=== PATIENT | male | born 1970 | race Caucasian/White ===

== ENCOUNTER → 2018-04-09 08:04 | Day surgery (SDC) | payer BC ==
[~2018-04-09 08:04] MED LIST: Clindamycin 600 MG IVPREMIX(* 600 MG/50 ML SDV IV ONE; Diazepam TAB(*) 5 MG ONE; Flumazenil* 0.1 MG/ML 5 ML MDV ONE; Lidocaine 1% INJ* 10 MG/ML 30 ML SDV ONE; Midazolam* 1 MG/ML 5 ML VIAL (5 MG) ONE; Naloxone* 0.4 MG/ML 1 ML VIAL ONE; fentaNYL* 50 MCG/ML 2 ML VIAL (100 MCG VIAL) ONE
--- NOTE | 2018-04-11 01:20 | OP ---
CC: Dr. Doyle * DATE OF OPERATION: 04/09/18 - [facility] CATH DATE OF : 70 SURGEON: Nitin Carpio MD ANESTHESIA: Local anesthesia with conscious sedation. PRE-OP DIAGNOSES: 1. Ventricular tachycardia. 2. ICD at elective replacement indicator. POST-OP DIAGNOSES: 1. Ventricular tachycardia. 2. ICD at elective replacement indicator. OPERATIVE PROCEDURE: ICD generator change. ESTIMATED BLOOD LOSS: None. COMPLICATIONS: None. INDICATIONS: The patient is a 48-year-old gentleman with a history of ventricular tachycardia, history of pacemaker implantation in 2007. The patient has been followed by Dr. Doyle. The patient reached the elective replacement indicator on his ICD and generator change was recommended. DESCRIPTION OF PROCEDURE: The patient was brought to the procedure room in a fasting state. Informed consent had been obtained prior to the procedure. All labs were reviewed. The patient was placed supine on the procedure table. His left deltopectoral area was cleaned and draped in the usual fashion. 1% lidocaine was used for local anesthesia. A 4 cm incision was made at the superior aspect of the ICD. Blunt dissection was carried onto the fibrous sheath. The fibrous sheath was opened and the ICD was removed from the pocket. The ICD was detached from the ventricular lead. The ventricular lead was tested and had a R wave sensitivity of 6, impedance 440 ohms, threshold 1 volt at 0.5 milliseconds. The explanted device is a [employer] model T177 serial #[id number]. The pocket was flushed with antibiotic infused normal saline. A new generator was attached appropriately to the ventricular lead. The new generator is a [employer] model [id number] serial #[id number]. The device was placed in the pocket. The surgical incision was closed in 3 layers. Patient was returned to the holding area in stable condition. [id number]/[facility] #: [id number] [facility]ENTER[facility]
== END | disposition home or self-care (01) ==
LOC: CHICATH 08:04
PROVIDERS: ATTEND Specialist
DX: Z45.02 Encounter for adjustment and management of automatic implantable cardiac defibrillator (principal); I47.2 Ventricular tachycardia; R01.1 Cardiac murmur, unspecified; R06.00 Dyspnea, unspecified; I42.8 Other cardiomyopathies; I34.8 Other nonrheumatic mitral valve disorders
CPT/HCPCS: 33249; 88300; 93641; 99156; 99157; A9270-GY; C1722; J2250; J2310; J3010

== ENCOUNTER 2019-09-09 19:42 | Inpatient (IN) | payer BC ==
--- OUTSIDE RECORDS SUMMARY | 2019-09-09 20:18 | XMS REPORT | Continuity of Care Document ---
:1970 External Reference #:[id number] Author Name Julio Doyle M.D. (transmitted by agent of provider Deja Banda) Address [address] [facility] [address] [place] [address] Care Team Providers Name Role Phone Louie Maldonado MD - Family Medicine Care Team Information Resident Engineer [phone] Julio Doyle MD [facility] - Care Team Information Resident Engineer Cardiovascular Disease Problems Active Problems Provider Date Hypertrophic Obstructive Cardiomyopathy Julio Doyle M.D. Onset: Automatic implantable cardiac Julio Doyle M.D. Onset: 09/30/2011 defibrillator in situ Mitral valve disorder Julio Doyle M.D. Onset: 09/30/2011 Paroxysmal ventricular tachycardia Julio Doyle M.D. Onset: 2011 Dyspnea Julio Doyle M.D. Onset: 09/30/2011 Heart murmur Julio Doyle M.D. Onset: 09/30/2011 Electrocardiogram abnormal Julio Doyle M.D. Onset: 05/08/2012 Preoperative cardiovascular examination Julio Doyle M.D. Onset: Paroxysmal supraventricular tachycardia SALINAS Herring Onset: 10/30/2013 Atrial fibrillation SALINAS Herring Onset: 10/30/2013 Palpitations Julio Doyle M.D. Onset: 12/13/2013 Social History Type Date Description Comments Sex Unknown Tobacco Use Start: Unknown Never Smoked Cigarettes Smoking Status Reviewed: 08/20/19 Never Smoked Cigarettes ETOH Use Drinks Alcoholic Beverages Occasionally ETOH Use Drinks 2 Alcoholic Beverages Per Week Tobacco Use Start: Unknown Patient has never smoked Recreational Drug Use Denies Drug Use Exercise Type/Frequency Exercises regularly Hikes Allergies, Adverse Reactions, Alerts Active Allergies Reaction Severity Comments Date Amoxicillin rash 12/09/2009 Bactrim hives 06/12/2013 Inactive Allergies NKDA 10/23/2007 Medications Active Medications SIG Qnty Indications Ordering Provider Date Toprol XL 1 by mouth every Unknown 08/19/2019 25mg Tablets day ER 24HR Clindamycin HCL one po x1 one 1caps Qutaybeh S. 09/23/2016 300mg hour before Ham Doyle Capsules dental procedure. Multi Complete daily Other Ordering 06/22/2014 Provider Capsules Aspir-81 1 by mouth every 427.31 Qutaybeh S. 10/30/2013 81mg Tablets day Ham Doyle DR Slow-Mag 2 tabs by mouth 120tabs Qutaybeh S. 71.5-119mg once daily Ham Doyle Tablets Immunizations Description No Information Available Vital Signs Date Vital Result Comment 08/20/2019 9:44am Height 70 inches 5'10" Weight 179.00 lb with boots Heart Rate 62 /min left radial BP Systolic Sitting 110 mmHg ule reg cuff BP Diastolic Sitting 76 mmHg ule reg cuff BMI (Body Mass Index) 25.7 kg/m2 Ejection Fraction 55-60% 07/24/19 Echo 04/11/2019 8:19am Height 70 inches 5'10" Weight 183.50 lb with boots/clothes Heart Rate 64 /min radial, regular BP Systolic Sitting 112 mmHg LA, reg cuff BP Diastolic Sitting 76 mmHg LA, reg cuff BP Systolic Standing 112 mmHg LA, reg cuff BP Diastolic Standing 76 mmHg LA, reg cuff BMI (Body Mass Index) 26.3 kg/m2 Ejection Fraction 60%-65% echo 06/22/18 Results Test Acquired Date Facility Test Result H/L Range Note Laboratory test 08/15/2019 [facility] Alt (SGPT) 14 U/L Normal 7-[address] [place] [address] [phone] Ast (Sgot) 17 U/L Normal 13-39 TSH (Thyroid Stim Horm) 1.43 mcIU/mL Normal 0.34-5.60 Basic Metabolic 08/15/2019 [facility] Sodium 140 mmol/L Normal 135-145 Panel [address] [place] [address] [phone] Potassium 4.4 mmol/L Normal 3.5-5.0 Chloride 104 mmol/L Normal 101-111 Co2 Carbon Dioxide 31 mmol/L Normal 22-32 Anion Gap 5 mmol/L Normal 2-11 Glucose 91 mg/dL Normal 70-100 Blood Urea Nitrogen 14 mg/dL Normal 6-24 Creatinine 0.84 mg/dL Normal 0.67-1.17 BUN/Creatinine Ratio 16.7 Normal 8-20 Calcium 9.2 mg/dL Normal 8.6-10.3 Egfr Non- 97.1 >60 Egfr 117.5 >60 1 Laboratory test 08/15/2019 [facility] Magnesium 1.9 mg/dL Normal 1.9-2.7 finding [address] [place] [address] [phone] 1 Because ethnic data is not always readily available, this report includes an eGFR for both -Americans and non- Americans. The National Kidney Disease Education Program (NKDEP) does not endorse the use of the MDRD equation for patients that are not between the ages of 18 and 70, are , have extremes of body size, muscle mass, or nutritional status, or are non- or non-. According to the National Kidney Foundation, irrespective of diagnosis, the stage of the disease is based on the level of kidney function: Stage Description GFR(mL/min/1.73 m(2)) 1 Kidney damage with normal or decreased GFR 90 2 Kidney damage with mild decrease in GFR 60-89 3 Moderate decrease in GFR 30-59 4 Severe decrease in GFR 15-29 5 Kidney failure <15 (or dialysis) Procedures Date Code Description Status 08/20/2019 21988 EKG Tracing & Interpretation Completed 07/26/2019 27744 Interrogation Device Eval Remote Up To 30 Days Completed Analysis,Rev,RP 07/26/2019 30232 Interrogation Device Eval Remote Up To 30 Days Completed Analysis,Rev,RP 07/26/2019 84638 Icd Eval Sing,Dual,Multi Lead Remote Recpt Transm Tech Rev Completed Tech S 07/26/2019 57784 Icd Eval Sing,Dual,Multi Lead Remote Recpt Transm Tech Rev Completed Tech S 07/26/2019 01742 Icd Check Remote Up To 90 Days Single,Dual,Multiple Lead Completed 07/26/2019 95958 Icd Check Remote Up To 90 Days Single,Dual,Multiple Lead Completed 07/24/2019 28580 ECHO Transthoracic, Real-Time 2D With Doppler And Color Completed Flow 07/24/2019 49161 ECHO Transthoracic, Real-Time 2D With Doppler And Color Completed Flow 06/25/2019 72900 Icd eval w/iterative adjment single lead Icd Completed 06/25/2019 59708 Icd eval w/iterative adjment single lead Icd Completed 06/25/2019 48026 Interrogation Implant Cardiovasc Monitor System Incl Completed Analysis Int 06/25/2019 67643 Interrogation Implant Cardiovasc Monitor System Incl Completed Analysis Int 03/29/2019 44179 Interrogation Device Eval Remote Up To 30 Days Completed Analysis,Rev,RP 03/29/2019 95496 Interrogation Device Eval Remote Up To [address] Completed Analysis,Rev,RP 03/29/2019 90101 Icd Eval Sing,Dual,Multi Lead Remote Recpt Transm Tech Rev Completed Tech S 03/29/2019 56347 Icd Eval Sing,Dual,Multi Lead Remote Recpt Transm Tech Rev Completed Tech S 03/29/2019 95554 Icd Check Remote Up To 90 Days Single,Dual,Multiple Lead Completed 03/29/2019 17093 Icd Check Remote Up To 90 Days Single,Dual,Multiple Lead Completed Medical Devices Description No Information Available Encounters Type Date Location Provider Dx Diagnosis Office Visit 04/11/2019 [facility] Apryl Bueno, I47.2 Ventricular 8:30a N.P. tachycardia Z95.810 Presence of automatic (implantable) cardiac defibrillator I42.1 Obstructive hypertrophic cardiomyopathy I71.9 Aortic aneurysm of unspecified site, without rupture Assessments Date Code Description Provider 08/20/2019 I47.2 Ventricular tachycardia Julio Doyle M.D. 08/20/2019 Z95.810 Presence of automatic (implantable) Julio Doyle M.D. cardiac defibrillator 08/20/2019 I42.2 Other hypertrophic cardiomyopathy Lui Leong.D. 08/20/2019 I77.819 Aortic ectasia, unspecified site Julio Doyle M.D. 07/26/2019 I47.2 Ventricular tachycardia Julio Doyle M.D. 07/26/2019 I47.2 Ventricular tachycardia Remote Device Checks 07/26/2019 Z95.810 Presence of automatic (implantable) Julio Doyle M.D. cardiac defibrillator 07/26/2019 Z95.810 Presence of automatic (implantable) Remote Device Checks cardiac defibrillator 07/26/2019 I42.1 Obstructive hypertrophic Julio Doyle M.D. cardiomyopathy 07/26/2019 I42.1 Obstructive hypertrophic Remote Device Checks cardiomyopathy 07/24/2019 I71.9 Aortic aneurysm of unspecified site, Julio Doyle M.D. without rupture 07/24/2019 I71.9 Aortic aneurysm of unspecified site, [facility] without rupture 07/24/2019 I47.2 Ventricular tachycardia [facility] 07/24/2019 Z95.810 Presence of automatic (implantable) [facility] cardiac defibrillator 07/24/2019 I42.1 Obstructive hypertrophic [facility] cardiomyopathy 07/24/2019 I42.2 Other hypertrophic cardiomyopathy [facility] 06/25/2019 I47.2 Ventricular tachycardia Ica Pacer Schedule 06/25/2019 Z95.810 Presence of automatic (implantable) Julio Doyle M.D. cardiac defibrillator 06/25/2019 Z95.810 Presence of automatic (implantable) Ica Pacer Schedule cardiac defibrillator 06/25/2019 I42.1 Obstructive hypertrophic Julio Doyle M.D. cardiomyopathy 06/25/2019 I42.1 Obstructive hypertrophic Ica Pacer Schedule cardiomyopathy 04/11/2019 I47.2 Ventricular tachycardia Apryl Bueno, N.P. 04/11/2019 Z95.810 Presence of automatic (implantable) Apryl Bueno, N.P. cardiac defibrillator 04/11/2019 I42.1 Obstructive hypertrophic Apryl Bueno, N.P. cardiomyopathy 04/11/2019 I71.9 Aortic aneurysm of unspecified site, Wesley Joyce.Eduardo. without rupture 03/29/2019 I47.2 Ventricular tachycardia Julio Doyle M.D. 03/29/2019 I47.2 Ventricular tachycardia Remote Device Checks 03/29/2019 Z95.810 Presence of automatic (implantable) Julio Dolye M.D. cardiac defibrillator 03/29/2019 Z95.810 Presence of automatic (implantable) Remote Device Checks cardiac defibrillator 03/29/2019 I42.1 Obstructive hypertrophic Julio Doyle M.D. cardiomyopathy 03/29/2019 I42.1 Obstructive hypertrophic Remote Device Checks cardiomyopathy Plan of Treatment 08/20/2019 - Julio Doyle M.D.I47.2 Ventricular puwjmplygwsN74.810 Presence of automatic (implantable) cardiac pbhqfgcdzqwnxS41.2 Other hypertrophic cardiomyopathyFollow up:8 months ovI77.819 Aortic ectasia, unspecified siteNew Orders:Echocardiogram, Ordered: 08/20/19 Functional Status Description No Information Available Mental Status Description No Information Available Referrals Refer to Reason for Referral Status Appt Date Cullen Munoz MD [place] alternative antiarrhythmic to amiodarone Sent [address] [facility] [address] [place] [address] [phone]
--- OUTSIDE RECORDS SUMMARY | 2019-09-09 20:18 | XMS REPORT | Continuity of Care Document ---
:1970 External Reference #:[id number] Author Name Louie Maldonado MD Address [address] [place] [id number] Problems Active Problems Provider Date Adult health examination Onset: 10/04/2018 Hypertrophic cardiomyopathy Louie Maldonado MD Onset: 08/16/2019 Note: ICD in place Paroxysmal atrial fibrillation Louie Maldonado MD Onset: 08/16/2019 Social History Type Date Description Comments Sex Unknown Tobacco Use Start: Unknown Patient has never smoked Smoking Status Reviewed: 08/16/19 Patient has never smoked Allergies, Adverse Reactions, Alerts Active Allergies Reaction Severity Comments Date Amoxicillin Anhydrous rash Severe 03/22/2019 Bactrim Rash May 2013 Severe 03/22/2019 Inactive Allergies Cardiomyopathy Meds restricted Severe 03/22/2019 Medications Active Medications SIG Qnty Indications Ordering Provider Date Slow-Mag Take 2 Tablets 120tabs Louie Maldonado MD 10/04/2018 71.5-119mg By Mouth Two Tablets DR Times Daily Metoprolol Succinate Unknown ER 25mg Tablets ER 24HR Aspir-Low 1 by mouth every Unknown 81mg Tablets day DR Multi Complete every day Unknown Capsules Immunizations CPT Code Status Date Vaccine Lot # [id number] Given 07/24/2019 Flu < 65 years 86547 Given 05/29/2018 Flu < 65 years 37831 Given 08/24/2017 Flu < 65 years 51517 Given 01/22/2016 Tdap - Boostrix/Adacel 65622 Given 07/30/2009 Pneumovax - for >=2years - PPSV23 Vital Signs Date Vital Result Comment 08/16/2019 11:46am BP Systolic 112 mmHg BP Diastolic 62 mmHg Height 69.5 inches 5'9.50" Weight 178.00 lb Heart Rate 62 /min Body Temperature 97.6 F O2 % BldC Oximetry 98 % BMI (Body Mass Index) 25.9 kg/m2 10/04/2018 9:56am BP Systolic 110 mmHg Height 70.00 inches 5'10.00" Weight 180.00 lb Heart Rate 80 /min Body Temperature 97.2 F O2 % BldC Oximetry 97 % BMI (Body Mass Index) 25.83 kg/m2 Results Test Acquired Date Facility Test Result H/L Range Note Basic Metabolic 08/15/2019 [facility] Sodium 140 mmol/L Normal 135-145 Panel [address] [place] [address] [phone] Potassium 4.4 mmol/L Normal 3.5-5.0 Chloride 104 mmol/L Normal 101-111 Co2 Carbon Dioxide 31 mmol/L Normal 22-32 Anion Gap 5 mmol/L Normal 2-11 Glucose 91 mg/dL Normal 70-100 Blood Urea Nitrogen 14 mg/dL Normal 6-24 Creatinine 0.84 mg/dL Normal 0.67-1.17 BUN/Creatinine Ratio 16.7 Normal 8-20 Calcium 9.2 mg/dL Normal 8.6-10.3 Egfr Non- 97.1 >60 Egfr 117.5 >60 1 Laboratory test 08/15/2019 [facility] Magnesium 1.9 mg/dL Normal 1.9-2.7 finding [address] [place] [address] [phone] Alt (SGPT) 14 U/L Normal 7-52 Ast (Sgot) 17 U/L Normal 13-39 TSH (Thyroid Stim Horm) 1.43 mcIU/mL Normal 0.34-5.60 1 Because ethnic data is not always [...] 5 Kidney failure <15 (or dialysis) Procedures Description No Information Available Medical Devices Description No Information Available Encounters Type Date Location Provider Dx Diagnosis Office Visit 08/16/2019 11:45a [facility] Louie Maldonado MD R06.83 Snoring J30.2 Other seasonal allergic rhinitis Assessments Date Code Description Provider 08/16/2019 R06.83 Snoring Louie Maldonado MD 08/16/2019 J30.2 Other seasonal allergic rhinitis Louie Maldonado MD Plan of Treatment No Information Available Functional Status Description No Information Available Mental Status Description No Information Available Referrals Description No Information Available
[2019-09-09 21:20] LABS: ABS Eosinophils 0.2 10^3/ul (0-0.6); ABS Lymphocytes 2.2 10^3/ul (1.0-4.8); ABS Monocytes 0.6 10^3/ul (0-0.8); ABS Neutrophils 4.8 10^3/ul (1.5-7.7); Eosinophil % 2.8 %; Hematocrit 40 % (42-52); Hemoglobin 13.6 g/dL (14.0-18.0); Lymphocyte % 28.3 %; Mean Corpuscular HGB Conc 34 g/dL (31-36); Mean Corpuscular Hemoglobin 33 pg (27-31); Mean Corpuscular Volume 96 fL (80-94); Mean Platelet Volume 7.2 fL (7.4-10.4); Platelet Count 229 10^3/uL (150-450); Red Blood Count 4.16 10^6 /uL (4.18-5.48); Red Cell Distribution Width 13 % (10-15); White Blood Count 7.9 10^3/uL (3.5-10.8)
--- NOTE | 2019-09-09 21:24 | ED ---
Shortness of Breath - HPI Summary HPI Summary: Patient with history of cardiomyopathy and episodes of V. tach with implanted defibrillator followed by [facility] cardiology complains of sudden onset shortness of breath and rapid heart rate at 7 PM today while lifting a chair. Denies any other symptoms, pain or injury. Multivitamin [Multivitamins] 1 cap PO QAM 09/20/13 [History Confirmed 09/09/19] Aspirin EC TAB* [Ecotrin EC Low Dose 81 MG*] 81 mg PO DAILY 01/13/14 [History Confirmed 09/09/19] Amiodarone HCl [Amiodarone HCl-] 100 mg PO DAILY 04/06/18 [History Confirmed ] Magnesium Oxide [Magnesium] 400 mg PO BID 04/06/18 [History Confirmed 09/09/19] - History of Current Complaint Chief Complaint: EDChestPainROMI Time Seen by Provider: 09/09/19 21:17 Hx Obtained From: Patient Onset/Duration: Sudden Onset, Lasting Hours Timing: Constant Current Severity: Moderate Dyspnea At: Exertion Alleviating Factors: Nothing Associated Signs & Symptoms: Negative - Allergy/Home Medications Allergies/Adverse Reactions: Allergies Allergy/AdvReac Type Severity Reaction Status Date / Time amoxicillin Allergy Severe Rash And Verified 09/10/19 00:01 Itching sulfamethoxazole Allergy Severe Rash And Verified 09/10/19 00:01 [From Bactrim] Itching trimethoprim [From Bactrim] Allergy Severe Rash And Verified 09/10/19 00:01 Itching BLACK PEPPER Allergy PER Uncoded 09/09/19 20:08 ALLERGY TESTING COCONUT Allergy PER Uncoded 09/09/19 20:08 ALLERGY TESTING CORN/SOY Allergy PER Uncoded 09/09/19 20:08 ALLERGY TESTING ENVIRONMENTAL Allergy PER Uncoded 09/09/19 20:08 ALLERGY TESTING Home Medications: Home Medications Multivitamin [Multivitamins] 1 cap PO QAM 09/20/13 [History Confirmed 09/09/19] Aspirin EC TAB* [Ecotrin EC Low Dose 81 MG*] 81 mg PO DAILY 01/13/14 [History Confirmed 09/09/19] Amiodarone HCl [Amiodarone HCl-] 100 mg PO DAILY 04/06/18 [History Confirmed ] Magnesium Oxide [Magnesium] 400 mg PO BID 04/06/18 [History Confirmed 09/09/19] PMH/Surg Hx/FS Hx/Imm Hx Endocrine/Hematology History: Denies: Hx Diabetes Cardiovascular History: Reports: Hx Coronary Artery Disease - CARDIAC CATH 2007 , Hx Pacemaker/ICD - ICD only , vtach, Other Cardiovascular Problems/ Disorders - OBSTRUCTIVE HYPERTROPHIC CARDIOMYOPATHY Denies: Hx Cardiomegaly, Hx Congestive Heart Failure, Hx Hypertension History: Denies: Hx Dialysis, Hx Renal Disease Sensory History: Reports: Hx Contacts or Glasses - GLASSES Denies: Hx Hearing Aid Opthamlomology History: Reports: Hx Contacts or Glasses - GLASSES EENT History: Denies: Hx Deafness Neurological History: Denies: Hx Dementia - Surgical History Surgery Procedure, Year, and Place: 2007 CARDIAC [place] [facility] [place] PACEMAKER DEFIBRILLATOR INSERTED, [facility]. 2013 SEPTOPLASTY AND [place]AL POL[place] [facility] [place] Anesthesia Reactions: No Infectious Disease History: No Infectious Disease History: Denies: Traveled Outside the [place] in Last 30 Days - Family History Known Family History: Positive: Non-Contributory - Social History Alcohol Use: Occasionally Substance Use Type: Reports: None Review of Systems Constitutional: Negative Eyes: Negative ENT: Negative Positive: Shortness Of Breath Gastrointestinal: Negative Genitourinary: Negative Musculoskeletal: Negative Skin: Negative Neurological/Mental Status: Negative Psychological: Normal All Other Systems Reviewed And Are Negative: Yes Physical Exam Triage Information Reviewed: Yes Vital Signs On Initial Exam: Initial Vitals Temp Pulse Resp BP Pulse Ox 98.4 F 104 16 130/82 98 09/09/19 20:06 09/09/19 20:06 09/09/19 20:06 09/09/19 20:06 09/09/19 20:06 Vital Signs Reviewed: Yes Appearance: Positive: Well-Appearing Skin: Positive: Warm Head/Face: Positive: Normal Head/Face Inspection Eyes: Positive: Normal Neck: Positive: Supple Respiratory/Lung Sounds: Positive: Clear to Auscultation Cardiovascular: Positive: Normal Abdomen Description: Positive: Nontender Musculoskeletal: Positive: Normal Neurological: Positive: Normal Psychiatric: Positive: Normal AVPU Assessment: Alert - [place] Coma Scale Best Eye Response: 4 - Spontaneous Best Motor Response: 6 - Obeys Commands Best Verbal Response: 5 - Oriented Coma Scale Total: 15 Procedures - Sedation Patient Received Moderate/Deep Sedation with Procedure: No Diagnostics - Vital Signs Vital Signs Temp Pulse Resp BP Pulse Ox 09/09/19 20:06 98.4 F 104 16 130/82 98 - Laboratory Lab Results: Lab Results 09/09/19 Range/Units 21:10 WBC 7.9 (3.5-10.8) 10^3/uL RBC 4.16 L (4.18-5.48) 10^6 /uL Hgb 13.6 L (14.0-18.0) g/dL Hct 40 L (42-52) % MCV 96 H (80-94) fL MCH 33 H (27-31) pg MCHC 34 (31-36) g/dL RDW 13 (10-15) % Plt Count 229 (150-450) 10^3/uL MPV 7.2 L (7.4-10.4) fL Neut % (Auto) 61.2 % Lymph % (Auto) 28.3 % [place] % (Auto) 7.4 % Eos % (Auto) 2.8 % Baso % (Auto) 0.3 % Absolute Neuts (auto) 4.8 (1.5-7.7) 10^3/ul Absolute Lymphs (auto) 2.2 (1.0-4.8) 10^3/ul Absolute Monos (auto) 0.6 (0-0.8) 10^3/ul Absolute Eos (auto) 0.2 (0-0.6) 10^3/ul Absolute Basos (auto) 0.0 (0-0.2) 10^3/ul Absolute Nucleated RBC 0.0 10^3/ul Nucleated RBC % 0.0 Result Diagrams: 09/09/19 21:10 09/09/19 21:10 Lab Statement: Any lab studies that have been ordered have been reviewed, and results considered in the medical decision making process. Course/Dx - Course Course Of Treatment: Patient with history of cardiomyopathy and episodes of V. tach with implanted defibrillator followed by [facility] cardiology complains of sudden onset shortness of breath and rapid heart rate at 7 PM today while lifting a chair. Denies any other symptoms, pain or injury. Heart rate 123. Vital signs otherwise within normal limits. Labs within normal limits. EKG A. fib, rate of 122. No prior history of A. fib. Rate controlled after 10 mg IV diltiazem, but rhythm still irregular. Admitted to hospitalist. - Diagnoses Provider Diagnoses: New onset atrial fibrillation, Chest pain, SOB (shortness of breath) on exertion Discharge ED - Sign-Out/Discharge Documenting (check all that apply): Patient Departure - Discharge Plan Condition: Stable Disposition: ADMITTED TO [facility] - Billing Disposition and Condition Condition: STABLE Disposition: Admitted to [facility] - Attestation Statements Provider Attestation: the patient was seen by the midlevel provider, it was determined by them that it was not necessary for me to see the patient, I was available for consult during the patient's visit in the ED. I did not establish and patient-physician relationship. The chart however has been reviewed and I am signing in an administrative capacity.
[2019-09-09] MEDS ORDERED: Diltiazem IV push/loading dose 5 MG/ML 5 ML vial (25 mg) IV SLOW PU ONE (21:38)
[2019-09-09 21:39] LABS: Albumin 4.3 g/dL (3.2-5.2); Albumin/Globulin Ratio 1.8 (1-3); Calcium 9.2 mg/dL (8.6-10.3); EGFR African American 117.5 (>60); EGFR Non-African American 97.1 (>60); Globulin 2.4 g/dL (2-4); Potassium 4.3 mmol/L (3.5-5.0); Total Bilirubin 0.3 mg/dL (0.2-1.0); Total Protein 6.7 g/dL (6.4-8.9)
[2019-09-09] MEDS ORDERED: Ondansetron INJ* 2 MG/ML VIAL IV PRN (23:37)
[2019-09-09] MEDS ORDERED: Acetaminophen TAB* 325 MG PO PRN (23:37)
[2019-09-10] MEDS: Apixaban* 5 MG TAB PO SCH ×3 (00:56→21:35)
--- NOTE | 2019-09-10 04:44 | HP ---
History of Present Illness - History of Present Illness Reason for Visit: Palpitations, Chest pressure, SOB on exertion History of Present Illness: This is a 49 yo with history of Hypertrophic cardiomyopathy, HTN, remote V-tach, CAD with cardiac cath, implanted defibrillator/pacer and family history consistent with hypertrophic cardiomyopathy presented with SOB on exertion and rapid heart rate this evening at around 7 pm while working at home. Said he was lifting a chair when it happened. Denied F/N/headache. Positive chest pressure/tightness and palpitations. The chest pressure did not radiate. - Past Medical History Cardiac: HTN, Other - Hypertrophic cardiomyopathy - Past Surgical History Past Surgical History: Hernia Repair, Other - Defibrillator/pacer placement - Past Social History Smoke: No Alcohol: Occasional Drugs: None Lives: With Family Domestic Violence: Negative Review of Systems - Measurements Intake and Output: Intake and Output Last 24 Hours 09/07/19 09/08/19 09/09/19 09/10/19 06:59 06:59 06:59 06:59 Weight 79.832 kg - Review of Systems Constitutional Symptoms: Negative: Weight Gain, Weight Loss, Fatigue Dermatology: Positive: Normal HEENT: Positive: Normal Eyes: Positive: Normal Thyroid: Positive: Palpitations Negative: Cold Intolerance, Heat Intolerance, Sweatiness, Tremor, Weight Loss , Weight Gain Pulmonary: Positive: Shortness of Breath Negative: Asthma, Exercise Intolerance, Home Oxygen Cardiology: Positive: Shortness of Breath, Palpitations Negative: Edema, Syncope Gastroenterology: Positive: Normal Genital - Urinary: Negative: Dysuria, Hematuria, Polyuria, Nocturia Genitourinary - Male: Negative: Prostatism Musculoskeletal: Negative: Osteoporosis, Sciatica Endocrinology: Positive: Normal Hematologic/Lymphatic: Negative: Anemia, Hx Leukemia, Hx Lymphoma Neurology: Negative: Headache, Migraines, Dizziness, Change in Balancing, Change in Coordination, Change in Memory Psychiatry: Negative: Depressed Mood, Suicidal Ideation, Hypomania, Eating Disorders Allergic/Immunologic: Negative: Hx Anaphylaxis, Asthma, Hx HIV Objective Active Medications: Acetaminophen (Tylenol Tab*) 650 mg PO Q4H PRN PRN Reason: PAIN - MILD Apixaban (Eliquis*) 5 mg PO BID [facility] Last Admin: 09/10/19 00:56 Dose: 5 mg Aspirin (Aspirin Ec Tab*) 81 mg PO DAILY [facility] Docusate Sodium (Colace Cap*) 100 mg PO BID LOU Magnesium Oxide (Magox 400 Tab*) 400 mg PO BID LOU Multivitamins/Minerals (Theragran/Minerals Tab*) 1 tab PO QAM [facility]OU Ondansetron HCl (Zofran Inj*) 4 mg IV Q4H PRN PRN Reason: NAUSEA/VOMITING Vital Signs - 8 hr 09/09/19 09/09/19 09/09/19 21:21 21:23 21:52 Temperature Pulse Rate 96 96 Respiratory 17 15 16 Rate Blood Pressure 117/85 106/80 (mmHg) O2 Sat by Pulse 98 97 Oximetry 09/09/19 09/09/19 09/09/19 22:00 22:02 22:22 Temperature Pulse Rate 85 79 Respiratory 6 18 Rate Blood Pressure 106/80 109/87 (mmHg) O2 Sat by Pulse 96 98 Oximetry 09/09/19 09/09/19 09/09/19 22:52 23:00 23:22 Temperature Pulse Rate 75 80 83 Respiratory 15 16 13 Rate Blood Pressure 99/83 119/78 (mmHg) O2 Sat by Pulse 98 97 99 Oximetry 09/09/19 09/10/19 09/10/19 23:52 00:00 00:22 Temperature Pulse Rate 88 82 84 Respiratory 16 14 15 Rate Blood Pressure 116/81 119/90 (mmHg) O2 Sat by Pulse 98 96 97 Oximetry 09/10/19 09/10/19 09/10/19 00:36 00:49 00:52 Temperature Pulse Rate 80 85 Respiratory 15 11 Rate Blood Pressure 119/90 106/85 (mmHg) O2 Sat by Pulse 98 98 Oximetry 09/10/19 09/10/19 09/10/19 01:01 01:22 01:52 Temperature Pulse Rate 93 81 88 Respiratory 21 14 14 Rate Blood Pressure 107/80 113/72 (mmHg) O2 Sat by Pulse 97 98 98 Oximetry 09/10/19 09/10/19 09/10/19 02:01 02:22 02:52 Temperature Pulse Rate 84 71 71 Respiratory 1 7 1 Rate Blood Pressure 102/75 109/72 (mmHg) O2 Sat by Pulse 96 98 97 Oximetry 09/10/19 09/10/19 09/10/19 03:01 03:02 03:26 Temperature 97.5 F 97.8 F Pulse Rate 83 76 Respiratory 5 18 Rate Blood Pressure 117/91 (mmHg) O2 Sat by Pulse 96 98 Oximetry 09/10/19 03:47 Temperature 97.7 F Pulse Rate 79 Respiratory 16 Rate Blood Pressure 114/90 (mmHg) O2 Sat by Pulse 100 Oximetry Oxygen Devices in Use Now: None Eyes: No Scleral Icterus, PERRLA Ears/Nose/Mouth/Throat: NL Teeth, Lips, Gums, Mucous Membranes Moist Neck: NL Appearance and Movements; NL JVP, No Thyroid Enlargement, Masses Respiratory: Symmetrical Chest Expansion and Respiratory Effort, Clear to Auscultation Cardiovascular: NL Sounds; No Murmurs; No JVD, No Edema, - - irregularly irregular Abdominal: NL Sounds; No Tenderness; No Distention, No Hepatosplenomegaly Lymphatic: No Cervical Adenopathy Extremities: No Edema, No Clubbing, Cyanosis Skin: No Rash or Ulcers Neurological: Alert and Oriented x 3, NL Muscle Strength and Tone Result Diagrams: 09/10/19 06:21 09/09/19 21:10 Additional Lab and Data: Lab Results 09/09/19 Range/Units 21:10 WBC 7.9 (3.5-10.8) 10^3/uL RBC 4.16 L (4.18-5.48) 10^6 /uL Hgb 13.6 L (14.0-18.0) g/dL Hct 40 L (42-52) % MCV 96 H (80-94) fL MCH 33 H (27-31) pg MCHC 34 (31-36) g/dL RDW 13 (10-15) % Plt Count 229 (150-450) 10^3/uL MPV 7.2 L (7.4-10.4) fL Neut % (Auto) 61.2 % Lymph % (Auto) 28.3 % [place] % (Auto) 7.4 % Eos % (Auto) 2.8 % Baso % (Auto) 0.3 % Absolute Neuts (auto) 4.8 (1.5-7.7) 10^3/ul Absolute Lymphs (auto) 2.2 (1.0-4.8) 10^3/ul Absolute Monos (auto) 0.6 (0-0.8) 10^3/ul Absolute Eos (auto) 0.2 (0-0.6) 10^3/ul Absolute Basos (auto) 0.0 (0-0.2) 10^3/ul Absolute Nucleated RBC 0.0 10^3/ul Nucleated RBC % 0.0 EKG Data: Showed Afib Assess/Plan/Problems-Billing Assessment: This is a 49 yo with history of Hypertrophic cardiomyopathy, HTN, remote V-tach, CAD with cardiac cath, implanted defibrillator/pacer and family history consistent with hypertrophic cardiomyopathy presented with: - Patient Problems (1) Dyspnea on exertion Current Visit: Yes Status: Acute Code(s): R06.09 - OTHER FORMS OF DYSPNEA SNOMED Code(s): 63906289 Comment: Admit to medicine--telemetry Cardiac enzymes Monitor BP (2) Chest pain due to CAD Current Visit: Yes Status: Acute Code(s): I25.119 - ATHSCL HEART DISEASE OF [place] COR ART W UNSP ANG PCTRS SNOMED Code(s): 445203025 Comment: As above c/w Aspirin FU Lipid panel (3) New onset a-fib Current Visit: Yes Status: Acute Code(s): I48.91 - UNSPECIFIED ATRIAL FIBRILLATION SNOMED Code(s): 10150885 Comment: Telemetry FU Cardiac enzymes I will start patient on AC --Eliquis 5 mg BID c/w Metoprolol 25 mg daily Patient initially on Amiodarone for 4 years but was dc'ed last April and started on Metoprolol. Echocardiogram Cardiology eval (4) Hypertrophic cardiomyopathy Current Visit: Yes Status: Acute Code(s): I42.2 - OTHER HYPERTROPHIC CARDIOMYOPATHY SNOMED Code(s): 073569893 Comment: FU echocardiogram. FU cardiology (5) HTN (hypertension), benign Current Visit: Yes Status: Acute Code(s): I10 - ESSENTIAL (PRIMARY) HYPERTENSION SNOMED Code(s): 34398037 Comment: c/w home Metoprolol with holding parameters (6) Full code status Current Visit: Yes Status: Acute Code(s): Z78.9 - OTHER SPECIFIED HEALTH STATUS SNOMED Code(s): 052904231 (7) DVT prophylaxis Current Visit: Yes Status: Acute Code(s): Z29.9 - ENCOUNTER FOR PROPHYLACTIC MEASURES, UNSPECIFIED SNOMED Code(s): 678368698 Comment: Patient started on Eliquis Status and Disposition: Admit to Medicine. Fair
[2019-09-10 06:56] LABS: ABS Eosinophils 0.2 10^3/ul (0-0.6); ABS Lymphocytes 2.2 10^3/ul (1.0-4.8); ABS Monocytes 0.5 10^3/ul (0-0.8); ABS Neutrophils 3.4 10^3/ul (1.5-7.7); Eosinophil % 3.8 %; Hematocrit 41 % (42-52); Hemoglobin 13.8 g/dL (14.0-18.0); Lymphocyte % 35.1 %; Mean Corpuscular HGB Conc 34 g/dL (31-36); Mean Corpuscular Hemoglobin 32 pg (27-31); Mean Corpuscular Volume 95 fL (80-94); Mean Platelet Volume 7.6 fL (7.4-10.4); Nucleated Red Blood Cells % 0.1; Platelet Count 218 10^3/uL (150-450); Red Blood Count 4.29 10^6 /uL (4.18-5.48); Red Cell Distribution Width 13 % (10-15); White Blood Count 6.4 10^3/uL (3.5-10.8)
[2019-09-10 07:09] LABS: HDL Cholesterol 49.2 mg/dL
[2019-09-10] MEDS ORDERED: Metoprolol Tartrate TAB* 25 MG PO ONE (08:21)
[2019-09-10] MEDS: Docusate CAP* 100 MG PO SCH ×2 (08:35→21:36)
[2019-09-10] MEDS: Magnesium Oxide TAB* 400 MG PO SCH ×2 (08:36→21:34)
[2019-09-10] MEDS: Multivitamins/Minerals TAB PO SCH (08:36)
[2019-09-10] MEDS ORDERED: Aspirin EC TAB* 81 MG TAB.EC PO SCH (09:00)
[2019-09-10] MEDS ORDERED: Metoprolol Succinate XL TAB* 25 MG PO SCH (09:00)
--- NOTE | 2019-09-10 09:51 | PN ---
Subjective Date of Service: 09/10/19 Interval History: Mr. Welch is feeling better today. No further palpitations, chest pressure, or SOB. He is still aware of his HR being irregular and tachycardic, but this is not bothersome to him. He has been taking metoprolol daily. He does occasionally feel very SOB with exercise and sometimes needs to stop mid- workout to recover. No concerns from nursing. Tele: Atrial fibrillation in the 100-130s. Family History: Unchanged from Admission Social History: Unchanged from Admission Past Medical History: Unchanged from Admission Objective Active Medications: Acetaminophen (Tylenol Tab*) 650 mg PO Q4H PRN PAIN - MILD Apixaban (Eliquis*) 5 mg PO BID [facility] Docusate Sodium (Colace Cap*) 100 mg PO BID LOU Magnesium Oxide (Magox 400 Tab*) 400 mg PO BID LOU Multivitamins/Minerals (Theragran/Minerals Tab*) 1 tab PO QAM LOU Ondansetron HCl (Zofran Inj*) 4 mg IV Q4H PRN NAUSEA/VOMITING Vital Signs - 8 hr 09/10/19 09/10/19 09/10/19 01:52 02:01 02:22 Temperature Pulse Rate 88 84 71 Respiratory 14 1 7 Rate Blood Pressure 113/72 102/75 (mmHg) O2 Sat by Pulse 98 96 98 Oximetry 09/10/19 09/10/19 09/10/19 02:52 03:01 03:02 Temperature 97.5 F Pulse Rate 71 83 Respiratory 1 5 Rate Blood Pressure 109/72 (mmHg) O2 Sat by Pulse 97 96 Oximetry 09/10/19 09/10/19 09/10/19 03:26 03:47 07:15 Temperature 97.8 F 97.7 F 97.5 F Pulse Rate 76 79 91 Respiratory 18 16 18 Rate Blood Pressure 117/91 114/90 101/77 (mmHg) O2 Sat by Pulse 98 100 97 Oximetry Oxygen Devices in Use Now: None Appearance: Middle-aged male sitting in bed in NAD Ears/Nose/Mouth/Throat: Mucous Membranes Moist Neck: NL Appearance and Movements; NL JVP, Trachea Midline Respiratory: Symmetrical Chest Expansion and Respiratory Effort, Clear to Auscultation Cardiovascular: NL Sounds; No Murmurs; No JVD, - - Irregular Abdominal: NL Sounds; No Tenderness; No Distention Extremities: No Edema Neurological: Alert and Oriented x 3 Lines/Tubes/Other Access: Clean, Dry and Intact Peripheral IV Nutrition: Taking PO's Result Diagrams: 09/10/19 06:21 09/09/19 21:10 Assess/Plan/Problems-Billing Assessment: Mr. Welch is a 49 yo M with PMH of hypertrophic cardiomyopathy, HTN, VT s/p ICD placement; who presented to the ED with c/o palpitations, chest pressure, and SOB on exertion and was found to be in new onset afib with RVR. - Patient Problems (1) Atrial fibrillation with RVR Code(s): I48.91 - UNSPECIFIED ATRIAL FIBRILLATION Comment: - New onset - Presented with palpitations, chest pressure, SOB - Rates still up into 130s - Pending echo - Appreciate Cardiology consult; plan to start sotalol load - Continue Eliquis, sotalol (2) HTN (hypertension), benign Code(s): I10 - ESSENTIAL (PRIMARY) HYPERTENSION Comment: - Normotensive - Continue sotalol (3) History of ventricular tachycardia Code(s): Z86.79 - PERSONAL HISTORY OF OTHER DISEASES OF THE CIRCULATORY SYSTEM Comment: - S/p AICD - Awaiting interrogation (4) Hypertrophic cardiomyopathy Code(s): I42.2 - OTHER HYPERTROPHIC CARDIOMYOPATHY Comment: - Pending echo (5) DVT prophylaxis Code(s): Z29.9 - ENCOUNTER FOR PROPHYLACTIC MEASURES, UNSPECIFIED Comment: - Eliquis (6) Full code status Code(s): Z78.9 - OTHER SPECIFIED HEALTH STATUS Comment: Status and Disposition: Inpatient for sotalol load. Anticipate d/c home when medically stable and cleared by Cardiology. Attending: Satish Coyle
[2019-09-10] MEDS: Sotalol TAB* 80 MG PO SCH ×2 (10:43→22:00)
--- NOTE | 2019-09-10 11:26 | ECHO ---
*[facility]* [place] [address] Fax #: [phone] Transthoracic Echocardiogram Patient: Jose Eduardo Welch : 1970 Study Date: 09/10/2019 Age: 49 Gender: M HR: 113 bpm Height: 70 in /177.8 cm BSA: 2.02 m^2 Weight: 184.6 lb /83.9 kg BMI: 26.5 kg/m^2 *Audit Control Clerk: * Katherine Shelton [facility] *Referring Physician: * Casimiro Bruno *Reading Physician: * Nitin Carpio MD Indications: Chest Pain, unspecified. Atrial Fibrillation. History: Coronary artery disease. Remote V-Tach. PMH: Hypertrophic Cardiomyopathy. Risk factors: Hypertension. Labs, prior tests, procedures, and surgery: ICD system implantation. Conclusions Summary: - Left ventricle: There is moderate hypertrophy of the septum measuring 1.7 cm. No evidence of left ventricular outflow tract obstruction. Systolic function is normal. The estimated ejection fraction is 55-60%. Wall motion is normal; there are no regional wall motion abnormalities. - Right ventricle: Pacer wire noted in the right ventricle. Systolic function is normal. - Mitral valve: There is mild regurgitation. - Aortic valve: Thickening, consistent with sclerosis. There is no evidence of stenosis. - Tricuspid valve: There is trace to mild regurgitation. - Pulmonary arteries: Systolic pressure is within the normal range. - Compared to study of 07/24/19, there is little change. Study data: Transthoracic echocardiogram. Procedure: Transthoracic echocardiography was performed. Image quality was fair. Complete 2D, spectral Doppler, and color flow Doppler. Location: Bedside. Patient status: Inpatient. Patient room number: 433. Rhythm: Atrial fibrillation. Findings Left ventricle: The cavity size is below normal. There is moderate hypertrophy of the septum measuring 1.7 cm. Systolic function is normal. The estimated ejection fraction is 55-60%. Wall motion is normal; there are no regional wall motion abnormalities. Left ventricular diastolic function parameters are indeterminate. Right ventricle: The cavity size is normal. Pacer wire noted in the right ventricle. Systolic function is normal. Systolic pressure is within the normal range. Left atrium: The atrium is mildly dilated. Right atrium: The atrium is mildly to moderately dilated. Pacer wire noted in right atrium. Mitral valve: The leaflets are mildly thickened. There is no evidence of stenosis. There is mild regurgitation. Aortic valve: The valve is trileaflet. The leaflets are normal thickness. Thickening, consistent with sclerosis. There is no evidence of stenosis. There is no significant regurgitation. Tricuspid valve: The leaflets are normal thickness. There is no evidence of stenosis. There is trace to mild regurgitation. Pulmonic valve: The leaflets are normal thickness. There is no evidence of stenosis. There is trace regurgitation. Aorta: Aortic root: The aortic root is mildly dilated. Ascending aorta: The ascending aorta is appears normal. Aortic arch: The aortic arch is appears normal. Pericardium: There is no pericardial effusion. Pulmonary arteries: The main pulmonary artery is normal-sized. Systolic pressure is within the normal range. Systemic veins: Inferior vena cava: The vessel is at the upper limits of normal in size. There is (>= 50%) respiratory change in the IVC dimension. Measurements Left ventricle Value Ref Aortic valve Value Ref JAOCB, LAX (L) 3.6 cm 4.2 - 5.8 Isadora diam, ED 2.1 cm ----- ESD, LAX (L) 2.4 cm 2.5 - 4.0 Peak v, S 1.3 m/sec ----- FS, LAX 35 % 25 - 43 VTI, S 25.2 cm ----- PW, ED, LAX 1.0 cm 0.6 - 1.0 Mean grad, S 4.0 mm Hg ----- FS 35 % 25 - 43 Peak grad, S 7.0 mm Hg ----- Mid-wall FS 10 % LVOT/AV, VTI ratio 0.75 ----- PW, ED 1.0 cm 0.6 - 1.0 BERTA, VTI 2.37 cm^2 ----- E', lat isadora, TDI 11.1 cm/sec >=10.0 BERTA, Vmax 2.40 cm^2 --- -- E/e', lat isadora, 8 TDI Mitral valve Value Ref E', med isadora, TDI 10.6 cm/sec >=7.0 Peak E 0.85 m/sec --- -- E/e', med isadora, 8 Peak A 0 m/sec ----- TDI Decel time 225 ms ----- E', avg, TDI 10.9 cm/sec Peak grad, D 2.9 mm Hg ----- E/e', avg, TDI 8 <=14 Pulmonic valve Value Ref LVOT Value Ref Peak v, S 0.61 m/sec ----- Diam, S 2.00 cm Peak grad, S 1.0 mm Hg ----- Area 3.1 cm^2 Peak vaishnavi, S 0.99 m/sec Tricuspid valve Value Ref VTI, S 19.0 cm TR peak v 2.1 m/sec <=2.8 Mean grad, S 2 mm Hg Peak RV-RA grad, S 18 mm Hg ----- SV 58 ml SV/bsa 29 ml/m^2 Aortic root Value Ref Root diam 3.6 cm <4.2 Ventricular septum Value Ref IVS, ED (H) 1.7 cm 0.6 - 1.0 Ascending aorta Value Ref AAo AP diam, S 3.5 cm ----- Right ventricle Value Ref JACOB, LAX 2.9 cm Aortic arch Value Ref JACOB minor ax, A4C 3.4 cm 1.9 - 3.5 Arch diam 2.4 cm ----- mid Pressure, S 21 mm Hg Decending aorta Value Ref [place] peak vaishnavi 0.72 m/sec ----- Left atrium Value Ref AP dim, ES 3.20 cm 3.00 - Pulmonary artery Value Ref 4.00 Pressure, S 20.0 mm Hg ----- ML dim, A4C 4.9 cm SI dim, A4C 5.6 cm Inferior vena cava Value Ref Vol/bsa, ES, 1-p 34 ml/m^2 12 - 37 Diam 2.1 cm ----- A4C Vol/bsa, ES, A/L 28 ml/m^2 16 - 34 Right atrium Value Ref SI dim, ES (H) 6.1 cm 3.4 - 5.3 ML dim, ES, A4C (H) 4.9 cm 2.6 - 4.4 Estimated RAP 3 mm Hg Legend: (L) and (H) reji values outside specified reference range. Prepared and electronically signed by Nitin Carpio MD 09/10/2019 11:25
[2019-09-10 11:40] LABS: Magnesium 1.9 mg/dL (1.9-2.7)
[2019-09-10] MEDS ORDERED: Magnesium Sulfate 1 GM IV* 1 GM/100 ML BAG IV ONE (11:59)
--- NOTE | 2019-09-10 12:45 | CONS ---
AMENDED REPORT NOW INCLUDES DESIGNATED COSIGNER CC: Dr. Louie Maldonado; Dr. Doyle * CONSULTATION REPORT: DATE OF CONSULT: 09/10/19 ATTENDING PHYSICIAN: Dr. Nitin Carpio, Cardiology.* (DICTATED BY HOLLAND RAO NP) PRIMARY CARE PHYSICIAN: Dr. Louie Maldonado. PRIMARY TUBE DRAWER: Historically, Dr. Doyle. REASON FOR CONSULT: Symptomatic AFib. CHIEF COMPLAINT: Lightheadedness, sensation of heart racing, shortness of breath. HISTORY OF PRESENT ILLNESS: This is a pleasant 49-year-old male patient who follows Dr. Doyle of our practice due to a notable history of hypertrophic obstructive cardiomyopathy; VT, historically on amiodarone therapy, single- chamber ICD in situ with probable inappropriate device output in October of 2013 due to possible atrial arrhythmia; mitral insufficiency; and positive family history of sudden cardiac . The patient states that in March of 2019 due to concerns of long-term risk of toxic side effects from amiodarone he decided to discontinue amiodarone therapy. The patient was historically placed on amiodarone after having device output for VT with concern of atrial origin arrhythmia in 2013. He has had no reoccurrence of device output since that time. Prior to this, in 2007, he had a single-chamber ICD placed due to VT secondary to HOCM. He states clinically he has been doing well. He recently was seen in consultation by Dr. Cullen Munoz on 08/14/19. I personally reviewed consultation note. At that time, due to no recurrent VT, Dr. Munoz felt it was reasonable continuing metoprolol therapy; however, initiating sotalol was also an option. The patient states that for quite some time now he has been noticing dyspnea on exertion with more than typical activity with associated sensation of heart racing. The patient remains active hiking the [employer] in addition to working out at [employer] and [employer] several times a week. The patient states yesterday around 7 p.m. while moving a rather light item from his car, he developed sudden onset of lightheadedness with association of heart racing. The patient states symptom was ongoing and persistent, thus he presented to [facility] for further evaluation. While being evaluated in the emergency department, he was noted to be in AFib with a ventricular rate of 122 beats per minute, thus he was admitted to [address] [place] [address] and we were asked to see the patient in consultation for newly found AFib. At this current time, he continues to not sensation of heart racing but he is not lightheaded; however, it was thought to be atrial in origin. The patient denies syncope, states he has never had a syncopal episode. He denies chest discomfort. He denies shortness of breath. Does report dyspnea on exertion with more than typical activity, however. In July of 2019, he had an updated thyroid function test, which was normal. He states that 2 weeks ago he completed an overnight oximetry study by his primary physician; however, results are pending. He offers no complaints at this time. He is compliant with medications, however. Last echocardiogram according to outpatient records was in June of 2018. At that time, LVEF was 60% to 65% with normal wall motion. There was some septal wall motion abnormality felt to be related to RV pacing. He had a sigmoid septum 2 cm with mild enlargement of the left atrium and dilated aortic root. Last ischemic evaluation appears to be via cardiac catheterization in 2007. Per report, the patient had normal coronary arteries. Last device check( today) Patient had NSVT , SVT episodes ( several) starting at 6:59pm 01/08/2020. Appears atrial in origin . PAST MEDICAL HISTORY: 1. VT. 2. Single-chamber ICD in situ due to history of VT. 3. VPCs. 4. Mitral insufficiency. 5. HOCM. 6. Amiodarone therapy due to VT, which was discontinued in March of 2019. 7. Possible atrial arrhythmia causing ICD output in 2013. 8. Reported paroxysmal AFib. 9. PSVT. PAST SURGICAL HISTORY: 1. Single-chamber [place] AICD in situ with gen change in 2017. 2. Cardiac catheterization in 2007. Per report, normal coronary arteries. HOME MEDICATIONS: Include: 1. Toprol 25 mg a day. 2. Multivitamin. 3. Aspirin 81 mg a day. 4. Mag oxide 400 mg p.o. b.i.d. ALLERGIES: Listed include: 1. AMOXICILLIN. 2. BACTRIM. 3. BLACK PEPPER. 4. COCONUT. 5. CORN/SOY. FAMILY HISTORY: Positive for sudden . Both his father and brother have hypertrophic obstructive cardiomyopathy in addition to AFib. SOCIAL HISTORY: The patient is , lives at home with his . He has his PhD in physics. He works from home. He resides with his and son. Denies use of tobacco products, alcohol use, or substance abuse. He remains active hiking the [employer] several times a week in addition to working out at the gym at [employer] and [employer] several times a week. Please note with more than typical activity, he will experience dyspnea with sensation of heart racing. REVIEW OF SYSTEMS: All systems have been reviewed and are otherwise negative except what was above mentioned in the HPI. PHYSICAL EXAM: Vital Signs: Temperature 98.5, pulse 90, respirations 20, oxygenation 98% on room air, blood pressure is 120/72. The patient was sitting upright in bed upon entering room, appears in no apparent distress, is cooperative, well nourished, A and O x3. HEENT: Head is atraumatic, normocephalic. Oral mucosa is moist. Tongue is midline. Neck: Supple. Trachea midline. No JVD. No carotid bruits. Cardiac: Tachy. S1, S2. Irregular rate and rhythm. No JVD. There was a mild systolic murmur noted with Valsalva maneuver. No gallop or rub. Lungs: Auscultated posteriorly. No evidence of adventitious breath sounds. Respirations are unlabored. /GI: Abdomen is soft, nontender, nondistended. Normoactive bowel sounds x4. Extremities: No pedal edema, no clubbing, no cyanosis. Peripheral Vascular: 3 + brachial pulse palpated bilaterally and symmetrically. 3+ dorsalis pedis pulse palpated bilaterally and symmetrically. Skin: Intact. No evidence of jaundice, rashes, or ecchymosis appreciated. DIAGNOSTIC STUDIES/LAB DATA: Blood work from [facility] on 09/09/19 : Sodium 140, potassium 4.3, creatinine 0.84, magnesium pending. Troponin negative x3. LDL 96. AST and ALT are normal. White count 6.4, hemoglobin 13.8 , hematocrit 41, platelets 218. ECG obtained on 09/09/19: AFib, rate 122. ASSESSMENT AND PLAN: 1. Newly found symptomatic paroxysmal atrial fibrillation with rapid ventricular rate response. Tentative CHADS-VASc is 0; however, echocardiogram is pending at this time. Given history of hypertrophic obstructive cardiomyopathy and off-label indication for sotalol use for prevention of ventricular tachycardia/ventricular fibrillation and recent EP evaluation by Dr. Cullen Munoz, who stated that sotalol initiation would be reasonable, we will proceed with sotalol medication load. The patient reports relative hypotension with higher doses of Toprol. He is only on Toprol 25 mg a day, thus we will start with sotalol 60 mg p.o. b.i.d. and up- titrate appropriately depending upon blood pressure response and rate response. The patient will need daily ECGs in addition to daily chemistry and magnesium levels. Recommend keeping K greater than 4, mag greater than 2. Baseline QTc is less than 450. TFTs normal on . We will obtain outpatient oximetry study that was completed approximately 1 to 2 weeks ago per the patient by his primary care provider. Etiology is likely secondary to hypertrophic obstructive cardiomyopathy, which increases risk of atrial and ventricular arrhythmias. We will discontinue Toprol therapy at this current time. It may be reasonable to continue Eliquis 5 mg p.o. b.i.d. for 4 to 6 weeks, then discontinue and resume aspirin 81 mg a day if no reoccurrence of atrial fibrillation. We will follow closely. ICD interrogation revealed atrial tachycardia since 6:59pm 09/09/2019 c /w sudden onset AF. Duration of time in AF appears to be less than 24 hours thus , will not proceed with STANLEY prior to chemical cardioversion. ICD interrogation was reviewed in person with Dr. Carpio. 2. History of hypertrophic obstructive cardiomyopathy. In 2018, the patient had known sigmoid septum that was 2 cm. Repeat echocardiogram is pending at this time. To be placed on sotalol therapy. He has a history of ventricular tachycardia with ICD in situ. Denies device output since 2013. 3. History of hypomagnesemia. Magnesium level today is pending. We will continue mag oxide 400 mg p.o. b.i.d. and replace according to daily chemistries. 4. Disposition: Pending course. Await echocardiogram. We will initiate sotalol 60 mg p.o. b.i.d. Please note, we will not initiate higher dose due to the patient's blood pressure. We will follow with daily ECGs, daily chemistries. Dr. Nitin Carpio has personally seen and examined the patient and agrees with the above assessment and plan. Thank you for this kind consultation. Any future questions or concerns, please do not hesitate to contact our practice. HOLLAND RAO NP [id number]/CPS #: [id number] RIKKI
[2019-09-11 06:23] LABS: ABS Eosinophils 0.3 10^3/ul (0-0.6); ABS Lymphocytes 2.3 10^3/ul (1.0-4.8); ABS Monocytes 0.6 10^3/ul (0-0.8); ABS Neutrophils 4.8 10^3/ul (1.5-7.7); Eosinophil % 3.3 %; Hematocrit 42 % (42-52); Hemoglobin 14.3 g/dL (14.0-18.0); Lymphocyte % 28.7 %; Mean Corpuscular HGB Conc 34 g/dL (31-36); Mean Corpuscular Hemoglobin 32 pg (27-31); Mean Corpuscular Volume 95 fL (80-94); Mean Platelet Volume 7.6 fL (7.4-10.4); Nucleated Red Blood Cells % 0.1; Platelet Count 225 10^3/uL (150-450); Red Blood Count 4.42 10^6 /uL (4.18-5.48); Red Cell Distribution Width 13 % (10-15)
[2019-09-11 06:38] LABS: BUN/Creatinine Ratio 15.8 (8-20); Calcium 8.7 mg/dL (8.6-10.3); EGFR Non-African American 84.3 (>60)
[2019-09-11] MEDS: Docusate CAP* 100 MG PO SCH (07:13)
--- NOTE | 2019-09-11 09:34 | PN ---
<PrestonMaureen - Last Filed: 09/11/19 09:28> Subjective Date of Service: 09/11/19 - Symptomatic AF with RVR Interval History: Patient did not recieve Sotalol last night due to symptomatic hypotension. He is currently in AF with RVR 130-140's. No c/o chest pain, sob. Medications Active Medications: Acetaminophen (Tylenol Tab*) 650 mg PO Q4H PRN PRN Reason: PAIN - MILD Apixaban (Eliquis*) 5 mg PO BID [facility] Last Admin: 09/10/19 21:35 Dose: 5 mg Magnesium Oxide (Magox 400 Tab*) 400 mg PO BID [facility] Last Admin: 09/10/19 21:34 Dose: 400 mg Multivitamins/Minerals (Theragran/Minerals Tab*) 1 tab PO QAM [facility] Last Admin: 09/10/19 08:36 Dose: 1 tab Objective Vital Signs: Temp Pulse Resp BP Pulse Ox 97.2 F 105 20 92/58 94 09/11/19 07:15 09/11/19 07:15 09/11/19 07:15 09/11/19 07:15 09/11/19 07:15 Oxygen Devices in Use Now: None Appearance: well nourished, NAD, A+O x3 Ears/Nose/Mouth/Throat: NL Teeth, Lips, Gums, Clear Oropharnyx, Mucous Membranes Moist Neck: NL Appearance and Movements; NL JVP, Trachea Midline Respiratory: Symmetrical Chest Expansion and Respiratory Effort, Clear to Auscultation Cardiovascular: No Edema, - - Tachy S1, S2 Irregular rate and rhythm. + systolic murmur with valsalva Extremities: No Edema Skin: No Rash or Ulcers Neurological: Alert and Oriented x 3 Lines/Tubes/Other Access: Clean, Dry and Intact Peripheral IV Laboratory Results: 09/11/19 06:00 09/11/19 06:00 Total Bilirubin 0.30 mg/dL (0.2-1.0) 09/09/19 21:10 AST 16 U/L (13-39) 09/09/19 21:10 ALT 12 U/L (7-52) 09/09/19 21:10 Alkaline Phosphatase 44 U/L (34-104) 09/09/19 21:10 Total Protein 6.7 g/dL (6.4-8.9) 09/09/19 21:10 Albumin 4.3 g/dL (3.2-5.2) 09/09/19 21:10 Globulin 2.4 g/dL (2-4) 09/09/19 21:10 Albumin/Globulin Ratio 1.8 (1-3) 09/09/19 21:10 Triglycerides 92 mg/dL 09/10/19 06:21 Cholesterol 164 mg/dL 09/10/19 06:21 LDL Cholesterol 96 mg/dL 09/10/19 06:21 HDL Cholesterol 49.2 mg/dL 09/10/19 06:21 09/09/19 09/10/19 09/10/19 21:10 00:29 03:18 Troponin I 0.00 0.01 0.00 Laboratory Results - last 24 hr 09/10/19 09/11/19 09/11/19 06:21 06:00 06:00 WBC 8.0 RBC 4.42 Hgb 14.3 Hct 42 MCV 95 H MCH 32 H MCHC 34 RDW 13 Plt Count 225 MPV 7.6 Neut % (Auto) 60.2 Lymph % (Auto) 28.7 Granite % (Auto) 7.5 Eos % (Auto) 3.3 Baso % (Auto) 0.3 Absolute Neuts (auto) 4.8 Absolute Lymphs (auto) 2.3 Absolute Monos (auto) 0.6 Absolute Eos (auto) 0.3 Absolute Basos (auto) 0.0 Absolute Nucleated RBC 0.0 Nucleated RBC % 0.1 Sodium 139 Potassium 4.0 Chloride 104 Carbon Dioxide 30 Anion Gap 5 BUN 15 Creatinine 0.95 Est GFR ( Amer) 102.0 Est GFR (Non-Af Amer) 84.3 BUN/Creatinine Ratio 15.8 Glucose 109 H Calcium 8.7 Magnesium 1.9 2.0 Triglycerides 92 Cholesterol 164 LDL Cholesterol 96 HDL Cholesterol 49.2 Diagnostic Imaging: *[facility]* [place] [address] Fax #: [phone] Transthoracic Echocardiogram Patient: Jose Eduardo Welch : 1970 Study Date: 09/10/2019 Age: 49 Gender: M HR: 113 bpm Height: 70 in /177.8 cm BSA: 2.02 m^2 Weight: 184.6 lb /83.9 kg BMI: 26.5 kg/m^2 *Threat Monitoring Analyst: * Katherine Shelton [facility] *Referring Physician: * Casimiro Bruno *Reading Physician: * Nitin Carpio MD Indications: Chest Pain, unspecified. Atrial Fibrillation. History: Coronary artery disease. Remote V-Tach. PMH: Hypertrophic Cardiomyopathy. Risk factors: Hypertension. Labs, prior tests, procedures, and surgery: ICD system implantation. Conclusions Summary: - Left ventricle: There is moderate hypertrophy of the septum measuring 1.7 cm. No evidence of left ventricular outflow tract obstruction. Systolic function is normal. The estimated ejection fraction is 55-60%. Wall motion is normal; there are no regional wall motion abnormalities. - Right ventricle: Pacer wire noted in the right ventricle. Systolic function is normal. - Mitral valve: There is mild regurgitation. - Aortic valve: Thickening, consistent with sclerosis. There is no evidence of stenosis. - Tricuspid valve: There is trace to mild regurgitation. - Pulmonary arteries: Systolic pressure is within the normal range. - Compared to study of 07/24/19, there is little change. This report is only to be considered final once signed by the Provider(s) as displayed in the "<Electronically Signed by >" field (s). Absence of a signature indicates the report is in a draft status and still needs to be finalized. In the event this document was created by someone other than the signing Provider, the individual initiating the document will be listed in the "Entered by:" or "Dictated by:" meza. EKG Data: 09/10/2019; Afib rate 87 Telemetry; Afib rate 130-140's Assessment/Plan #1 Symptomatic AFib with RVR; Patient developed hypotension after administration of Sotalol. Currently in AF with RVR. Will proceed wiht STANLEY/CV today and reconsider reinitiation of Sotalol 40mg PO BID tonight once patient is back in NSR. Continue Eliquis 5mg PO BID. Will re evaluate Sotalol after STANLEY/ CV. Patient NPO. K+ and Mag stable #2 h/o HOCM with + genetic testing; Will re address Sotalol after CV. #3 h/o VT with single chamber ICD in situ. No device output reported since 2013 #4 Disposition pending course. will follow. Case discussed with who agrees with plan of care. Requested sleep study results from PCP that was completed two weeks ago. Attending: Mickie Isaacs <Mickie Isaacs - Last Filed: 09/11/19 12:20> Medications Active Medications: Acetaminophen (Tylenol Tab*) 650 mg PO Q4H PRN PRN Reason: PAIN - MILD Apixaban (Eliquis*) 5 mg PO BID [facility] Last Admin: 09/11/19 10:14 Dose: 5 mg Magnesium Oxide (Magox 400 Tab*) 400 mg PO BID [facility] Last Admin: 09/11/19 09:52 Dose: Not Given Multivitamins/Minerals (Theragran/Minerals Tab*) 1 tab PO QAM [facility] Last Admin: 09/11/19 09:52 Dose: Not Given Objective Vital Signs: Temp Pulse Resp BP Pulse Ox 97.2 F 105 20 92/58 94 09/11/19 07:15 09/11/19 07:15 09/11/19 07:15 09/11/19 07:15 09/11/19 07:15 Laboratory Results: 09/11/19 06:00 09/11/19 06:00 Total Bilirubin 0.30 mg/dL (0.2-1.0) 09/09/19 21:10 AST 16 U/L (13-39) 09/09/19 21:10 ALT 12 U/L (7-52) 09/09/19 21:10 Alkaline Phosphatase 44 U/L (34-104) 09/09/19 21:10 Total Protein 6.7 g/dL (6.4-8.9) 09/09/19 21:10 Albumin 4.3 g/dL (3.2-5.2) 09/09/19 21:10 Globulin 2.4 g/dL (2-4) 09/09/19 21:10 Albumin/Globulin Ratio 1.8 (1-3) 09/09/19 21:10 Triglycerides 92 mg/dL 09/10/19 06:21 Cholesterol 164 mg/dL 09/10/19 06:21 LDL Cholesterol 96 mg/dL 09/10/19 06:21 HDL Cholesterol 49.2 mg/dL 09/10/19 06:21 09/09/19 09/10/19 09/10/19 21:10 00:29 03:18 Troponin I 0.00 0.01 0.00 Assessment/Plan I personally saw and examinined the patient. SBP low with A fib, RVR. Unable to get Sotalol due to drop in BP (and this occured with pure beta ilir in the past) Pt now s/p STANLEY guided CV, succesful. SBP 89/56 now, slowly improving post CV. I agree with the above plan of initiating Sotalol post CV when BP better and likely better able to tolerate. STANLEY showed small LV chamber diameter, septal thickening and hyperdynamic ventricle. OK to keep well hydrated.
[2019-09-11] MEDS: Apixaban* 5 MG TAB PO SCH ×3 (09:52→22:01)
[2019-09-11] MEDS: Multivitamins/Minerals TAB PO SCH (09:52)
[2019-09-11] MEDS: Magnesium Oxide TAB* 400 MG PO SCH ×2 (09:52→22:01)
[2019-09-11] MEDS ORDERED: Flumazenil* 0.1 MG/ML 5 ML MDV ONE (10:54)
[2019-09-11] MEDS ORDERED: Lidocaine 2% VISCOUS* 15 ML UDC ONE (10:54)
[2019-09-11] MEDS ORDERED: fentaNYL* 50 MCG/ML 2 ML VIAL (100 MCG VIAL) ONE (10:54)
[2019-09-11] MEDS ORDERED: Midazolam* 1 MG/ML 5 ML VIAL (5 MG) ONE (10:54)
[2019-09-11] MEDS ORDERED: Naloxone* 0.4 MG/ML 1 ML VIAL ONE (10:54)
--- NOTE | 2019-09-11 12:14 | PROCNOTE ---
Cardiology Procedure Note STANLEY and CV completed PRELIM REPORT Succesful electrical CV s/p 5 mg versed, 25 mcg fentanyl. BP low throughout the study, pt awake or arousable throughout the study. BP improved post CV. No other complications except low BP.
--- NOTE | 2019-09-11 12:54 | CARD ---
CARDIOVERSION REPORT: DATE OF PROCEDURE: 09/11/19 PROCEDURE: Electrical cardioversion. The patient underwent STANLEY-guided cardioversion, the transesophageal echo results are documented separ ately. The indications, risks, and benefits of both procedures were discussed with the patient. His blood p ressure was low prior to initiation of the procedure. The patient was awake, alert, and amenable to proceeding. DESCRIPTION OF PROCEDURE: The patient swallowed viscous lidocaine. Following this, a time-out proce dure was called and he received a total of 5 mg of Versed and 25 mcg of fentanyl for sedation. The transesophageal echo did not show any evidence of thrombus in the left atrial appendage or left a trium. There was excellent to-and-fro flow in the appendage and the decision was made to proceed wit h electrical cardioversion. The patient had AP patches applied. He received 120 joules of energy synchronously delivered across the chest wall with successful cardioversion from AFib with rapid ventricular rate to normal sinus rh ythm in the 60s. His blood pressure improved from high 60s, low 70s systolic to systolic 85. Curren tly, the patient is in sinus rhythm at 63 beats a minute, oxygen saturation 99% to 100% on 2 L nasal cannula, respiratory rate is 14, and blood pressure 85/57. He is arousable and at times during the p rocedure was awake. CONCLUSION: Successful cardioversion. The patient was hypotensive pre and post and mentating. No o ther complications. A 12-lead ECG is pending. [id number]/[facility] #: [id number]
--- NOTE | 2019-09-11 13:13 | PN ---
Subjective Date of Service: 09/11/19 Interval History: Patient feels relatively good. Patient denies palpitations, but states that things don't "Feel Right" in his chest. Patient got a little dizzy when walking to the bathroom. Patient denies CP, SOB, F/C, N/V, abdominal pain, diarrhea, or other pain. Family History: Unchanged from Admission Social History: Unchanged from Admission Past Medical History: Unchanged from Admission Objective Active Medications: Acetaminophen (Tylenol Tab*) 650 mg PO Q4H PRN PRN Reason: PAIN - MILD Apixaban (Eliquis*) 5 mg PO BID [facility] Last Admin: 09/11/19 10:14 Dose: 5 mg Magnesium Oxide (Magox 400 Tab*) 400 mg PO BID [facility] Last Admin: 09/11/19 09:52 Dose: Not Given Multivitamins/Minerals (Theragran/Minerals Tab*) 1 tab PO QAM [facility] Last Admin: 09/11/19 09:52 Dose: Not Given Sotalol HCl (Betapace Tab*) 40 mg PO BID [facility] Vital Signs - 8 hr 09/11/19 09/11/19 09/11/19 06:47 07:15 11:05 Temperature 97.2 F Pulse Rate 105 90 Respiratory 16 20 Rate Blood Pressure 92/58 (mmHg) O2 Sat by Pulse 94 97 Oximetry 09/11/19 09/11/19 09/11/19 11:12 11:15 11:31 Temperature 98.6 F Pulse Rate 106 83 Respiratory Rate Blood Pressure 83/54 95/77 (mmHg) O2 Sat by Pulse 98 97 Oximetry 09/11/19 09/11/19 09/11/19 11:36 11:42 11:46 Temperature Pulse Rate 75 114 124 Respiratory Rate Blood Pressure 78/60 91/63 119/52 (mmHg) O2 Sat by Pulse 98 96 98 Oximetry 09/11/19 09/11/19 09/11/19 11:52 11:55 11:59 Temperature Pulse Rate 119 114 92 Respiratory Rate Blood Pressure 70/48 71/41 58/48 (mmHg) O2 Sat by Pulse 95 94 94 Oximetry 09/11/19 09/11/19 09/11/19 12:00 12:01 12:04 Temperature Pulse Rate 112 99 Respiratory Rate Blood Pressure 77/49 63/50 63/40 (mmHg) O2 Sat by Pulse 95 95 Oximetry 09/11/19 09/11/19 09/11/19 12:07 12:08 12:11 Temperature Pulse Rate 119 66 64 Respiratory Rate Blood Pressure 69/47 88/59 83/55 (mmHg) O2 Sat by Pulse 96 97 99 Oximetry 09/11/19 09/11/19 09/11/19 12:13 12:16 12:19 Temperature Pulse Rate 67 64 63 Respiratory Rate Blood Pressure 85/57 89/58 89/56 (mmHg) O2 Sat by Pulse 98 99 99 Oximetry 09/11/19 09/11/19 09/11/19 12:21 12:24 12:26 Temperature Pulse Rate 66 66 66 Respiratory Rate Blood Pressure 87/56 83/56 76/56 (mmHg) O2 Sat by Pulse 100 99 97 Oximetry 09/11/19 09/11/19 09/11/19 12:33 12:38 12:43 Temperature Pulse Rate 70 64 64 Respiratory Rate Blood Pressure 85/54 87/59 96/56 (mmHg) O2 Sat by Pulse 98 98 97 Oximetry 09/11/19 09/11/19 12:48 12:53 Temperature Pulse Rate 62 63 Respiratory Rate Blood Pressure 97/59 86/59 (mmHg) O2 Sat by Pulse 97 97 Oximetry Oxygen Devices in Use Now: None Appearance: Patient is a 49yo male who appears stated age and is sitting in the bed in NAD. Eyes: No Scleral Icterus, PERRLA Ears/Nose/Mouth/Throat: NL Teeth, Lips, Gums, Mucous Membranes Moist Neck: NL Appearance and Movements; NL JVP, Trachea Midline Respiratory: Symmetrical Chest Expansion and Respiratory Effort, Clear to Auscultation Cardiovascular: NL Sounds; No Murmurs; No JVD, No Edema, - - Tachycardia, irregularly irregular rhythm Abdominal: NL Sounds; No Tenderness; No Distention, No Hepatosplenomegaly Lymphatic: No Cervical Adenopathy Extremities: No Edema, No Clubbing, Cyanosis Skin: No Rash or Ulcers, No Nodules or Sclerosis Neurological: Alert and Oriented x 3, NL Sensation, NL Muscle Strength and Tone , - - CN II-XII intact. Result Diagrams: 09/11/19 06:00 09/11/19 06:00 Additional Lab and Data: Lab Results EKG Data: Showed Afib Assess/Plan/Problems-Billing Assessment: Mr. Welch is a 49 yo M with PMH of hypertrophic cardiomyopathy, HTN, VT s/p ICD placement; who presented to the ED with c/o palpitations, chest pressure, and SOB on exertion and was found to be in new onset afib with RVR. - Patient Problems (1) Atrial fibrillation with RVR Current Visit: Yes Status: Acute Code(s): I48.91 - UNSPECIFIED ATRIAL FIBRILLATION SNOMED Code(s): 566009881841904 Comment: - New onset - Presented with palpitations, chest pressure, SOB - Rates still up into 150s - Echo shows no new findings - Started Sotalol load per Cardiology, became symptomatically bradycardic - STANLEY guided cardioversion today and then decreased dose sotalol for maintenence of sinus rhythm - Continue Eliquis (2) Full code status Current Visit: Yes Status: Acute Code(s): Z78.9 - OTHER SPECIFIED HEALTH STATUS SNOMED Code(s): 662126413 Comment: (3) HTN (hypertension), benign Current Visit: Yes Status: Acute Code(s): I10 - ESSENTIAL (PRIMARY) HYPERTENSION SNOMED Code(s): 85216541 Comment: - Borderline hypotensive and symptomatic - Hold metoprolol - Decrease sotalol dose (4) History of ventricular tachycardia Current Visit: Yes Status: Acute Code(s): Z86.79 - PERSONAL HISTORY OF OTHER DISEASES OF THE CIRCULATORY SYSTEM SNOMED Code(s): 349383510504196 Comment: - Due to HOCM - S/p AICD (5) Hypertrophic cardiomyopathy Current Visit: Yes Status: Acute Code(s): I42.2 - OTHER HYPERTROPHIC CARDIOMYOPATHY SNOMED Code(s): 160605220 Comment: - Known history, S/P ICD (6) DVT prophylaxis Current Visit: Yes Status: Acute Code(s): Z29.9 - ENCOUNTER FOR PROPHYLACTIC MEASURES, UNSPECIFIED SNOMED Code(s): 393541219 Comment: - Eliquis Status and Disposition: Inpatient for sotalol load. Anticipate d/c home when medically stable and cleared by Cardiology, likely after Sotalol load.
[2019-09-11] MEDS ORDERED: Sotalol TAB* 80 MG PO SCH (14:00)
[2019-09-11] MEDS: Sotalol TAB* 80 MG PO SCH (22:02)
--- NOTE | 2019-09-11 22:31 | TEE ---
*[facility]* [place] [address] Fax #: [phone] Transesophageal Echocardiogram Patient: Jose Eduardo Welch : 1970 Study Date: 09/11/2019 Age: 49 Gender: M HR: 136 bpm Height: 70 in /177.8 cm BSA: 1.97 m^2 Weight: 174.6 lb /79.4 kg BMI: 25.1 kg/m^2 *Climbing Guide: * Cait Morin RDCS RN *Referring Physician: * Maureen Johnston *Reading Physician: * Mickie Isaacs MD Indications: Atrial Fibrillation. History: Coronary artery disease. Hypertrophic cardiomyopathy. V. Tach. Risk factors: Hypertension. Labs, prior tests, procedures, and surgery: ICD system implantation. Conclusions Summary: - Left ventricle: The cavity size is below normal. There is moderate hypertrophy of the septum. There is turbulent flow in the left ventricular outflow tract. The estimated ejection fraction is 55-60%. - Right ventricle: Systolic function is normal. - Left atrium: There is no evidence of a thrombus in the atrial cavity or appendage. - Atrial septum: No defect or patent foramen ovale is identified with color flow Doppler or agitated saline. The bubble study is negative on Image 40. - Mitral valve: There is mild regurgitation. - Tricuspid valve: There is trace to mild regurgitation. - Pulmonic valve: There is mild regurgitation. - Ascending aorta: The ascending aorta is not dilated. There is mild atherosclerotic plaque seen in the visualized segments of the aorta. Study data: Diagnostic Transesophageal Echocardiogram Consent: The risks and benefits of the procedure, including alternatives were discussed with the patient and/or their health care automotive sales representative and written informed consent was obtained. Procedure: Initial setup: The patient was brought to the laboratory in the fasting state.Intravenous access was obtained. Surface ECG leads, heart rate, heart rhythm, blood pressure measurements, pulse oximetric signals, and mainstream end-tidal CO2 tracings were monitored throughout the procedure. Sedation. Moderate sedation was administered by nursing staff. History and physical as well as labs were reviewed. An oral bite block was inserted for protection of oral dentition. The patient was placed in the left lateral decubitus position. Topical anesthesia was obtained using viscous lidocaine. A transesophageal probe was inserted by the attending hourly manager without difficulty. Transesophageal echocardiography was performed. Image quality was good and all standard views were attempted within the limitations of patient tolerance and safety. Imaging was expedited since the patient was hypotensive throughout the procedure despite aggressive fluid administration. Multiple 2D, color flow Doppler and spectral Doppler images were obtained. The transesophageal probe was removed. A bubble study was performed. Location: Procedure room. Patient status: Inpatient. Patient room number: 433. Study completion: The patient tolerated the procedure well. There were no complications. Administered medications: Midazolam 5 mg IV. Fentanyl 25 mcg IV. Findings Left ventricle: The cavity size is below normal. There is moderate hypertrophy of the septum. There is turbulent flow in the left ventricular outflow tract. The estimated ejection fraction is 55-60%. Wall motion is normal. There are no regional wall motion abnormalities. Right ventricle: The cavity size is normal. Pacer wire noted in the right ventricle. Systolic function is normal. Left atrium: The atrium is mildly dilated. The appendage is of normal size. The emptying velocity is normal. There is no evidence of a thrombus in the atrial cavity or appendage. Right atrium: The atrium is mildly to moderately dilated. Pacer wire noted in right atrium. Atrial septum: No defect or patent foramen ovale is identified with color flow Doppler or agitated saline. The bubble study is negative on Image 40. Mitral valve: The leaflets are mildly thickened. There is no evidence of stenosis. There is mild regurgitation. Aortic valve: The valve is trileaflet. The leaflets are normal thickness. There is no evidence of stenosis. There is trace regurgitation. Tricuspid valve: The valve is structurally normal. There is no evidence of stenosis. There is trace to mild regurgitation. Pulmonic valve: The valve is structurally normal. There is mild regurgitation. Aorta: Aortic root: The aortic root is mildly dilated at 3.9 cm. Ascending aorta: The ascending aorta is not dilated. There is mild atherosclerotic plaque seen in the visualized segments of the aorta. Pericardium: There is no pericardial effusion. Pulmonary arteries: The main pulmonary artery is normal-sized. Systemic veins: Inferior vena cava: The vessel is normal in size. Superior vena cava: The vessel is appears normal. Pulmonary veins: The pulmonary veins appear normal. The left upper pulmonary vein is well seen and interrogated with Doppler. Measurements Aortic valve Value Ref Aortic root Value Ref Rosey diam, ED 2.1 cm ---- Root diam 3.9 cm <4.1 Mitral valve Value Ref Ascending aorta Value Ref Peak E 0.99 m/sec ---- AAo AP diam, S 3.1 cm ---- Decel time 103 ms ---- Peak grad, D 3.9 mm Hg ---- Legend: (L) and (H) reji values outside specified reference range. Prepared and electronically signed by Mickie Isaacs MD 09/11/2019 22:30
--- NOTE | 2019-09-12 01:53 | PN ---
Hospitalist Progress Note Date of Service: 09/12/19 Call to bedside for episode of vtach. Patient was walking to the bathroom. No symptoms. six beat run noted. Will check bmp and mag level. Also patient being started on sotalol. I have advised nursing to hold am dose until we discuss with cardiology. Will sign out to day team to discuss with cardiology.
[2019-09-12 02:08] LABS: BUN/Creatinine Ratio 16.3 (8-20); Calcium 8.6 mg/dL (8.6-10.3); EGFR African American 105.8 (>60); EGFR Non-African American 87.4 (>60); Magnesium 1.9 mg/dL (1.9-2.7); Potassium 4.8 mmol/L (3.5-5.0)
[2019-09-12 06:35] LABS: Calcium 8.3 mg/dL (8.6-10.3); Magnesium 1.9 mg/dL (1.9-2.7); Potassium 4.2 mmol/L (3.5-5.0)
[2019-09-12 06:41] LABS: BUN/Creatinine Ratio 17.3 (8-20); EGFR African American 122.6 (>60); EGFR Non-African American 101.3 (>60)
[2019-09-12] MEDS ORDERED: Magnesium Sulfate 1 GM IV* 1 GM/100 ML BAG IV ONE (06:59)
[2019-09-12] MEDS: Multivitamins/Minerals TAB PO SCH (08:10)
[2019-09-12] MEDS: Magnesium Oxide TAB* 400 MG PO SCH ×2 (08:10→21:12)
[2019-09-12] MEDS: Apixaban* 5 MG TAB PO SCH ×2 (08:10→21:11)
[2019-09-12] MEDS: Sotalol TAB* 80 MG PO SCH ×2 (08:11→21:11)
--- NOTE | 2019-09-12 12:41 | PN ---
Subjective Date of Service: 09/12/19 Interval History: Patient is feeling well today. Patient had no symptoms with overnight VT. Patient denies dizziness, palpitations, F/C, N/V, abdominal pain, diarrhea. Family History: Unchanged from Admission Social History: Unchanged from Admission Past Medical History: Unchanged from Admission Objective Active Medications: Acetaminophen (Tylenol Tab*) 650 mg PO Q4H PRN PRN Reason: PAIN - MILD Apixaban (Eliquis*) 5 mg PO BID [facility] Last Admin: 09/12/19 08:10 Dose: 5 mg Magnesium Oxide (Magox 400 Tab*) 400 mg PO BID [facility] Last Admin: 09/12/19 08:10 Dose: 400 mg Multivitamins/Minerals (Theragran/Minerals Tab*) 1 tab PO QAM [facility] Last Admin: 09/12/19 08:10 Dose: 1 tab Sotalol HCl (Betapace Tab*) 40 mg PO BID [facility] Last Admin: 09/12/19 08:11 Dose: 40 mg Vital Signs - 8 hr 09/12/19 09/12/19 09/12/19 08:00 08:02 10:51 Temperature 97.8 F 97.9 F Pulse Rate 51 57 Respiratory 16 16 16 Rate Blood Pressure 103/66 100/60 (mmHg) O2 Sat by Pulse 97 97 Oximetry 09/12/19 09/12/19 10:53 10:57 Temperature Pulse Rate 65 Respiratory Rate Blood Pressure 90/61 99/72 (mmHg) O2 Sat by Pulse 99 99 Oximetry Oxygen Devices in Use Now: None Appearance: Patient is a 49yo male who appears stated age and is sitting in the bed in [facility]. Eyes: No Scleral Icterus, PERRLA Ears/Nose/Mouth/Throat: NL Teeth, Lips, Gums, Clear Oropharnyx, Mucous Membranes Moist Neck: NL Appearance and Movements; NL JVP, Trachea Midline Respiratory: Symmetrical Chest Expansion and Respiratory Effort, Clear to Auscultation Cardiovascular: NL Sounds; No Murmurs; No JVD, RRR, No Edema Abdominal: NL Sounds; No Tenderness; No Distention, No Hepatosplenomegaly Lymphatic: No Cervical Adenopathy Extremities: No Edema, No Clubbing, Cyanosis Skin: No Rash or Ulcers, No Nodules or Sclerosis Neurological: Alert and Oriented x 3, NL Sensation, NL Muscle Strength and Tone , - - CN II-XII intact. Result Diagrams: 09/11/19 06:00 09/12/19 05:16 Additional Lab and Data: Lab Results EKG Data: Showed Afib Assess/Plan/Problems-Billing Assessment: Mr. Welch is a 49 yo M with PMH of hypertrophic cardiomyopathy, HTN, VT s/p ICD placement; who presented to the ED with c/o palpitations, chest pressure, and SOB on exertion and was found to be in new onset afib with RVR. - Patient Problems (1) Atrial fibrillation with RVR Current Visit: Yes Status: Acute Code(s): I48.91 - UNSPECIFIED ATRIAL FIBRILLATION SNOMED Code(s): 706937727592482 Comment: - New onset - Presented with palpitations, chest pressure, SOB - Rates still up into 150s - Echo shows no new findings - Started Sotalol load per Cardiology - STANLEY guided cardioversion on 09/11 and then decreased dose sotalol for maintenence of sinus rhythm - Continue Eliquis - Not symptomatic from moderately low BP - QTc WNL (2) HTN (hypertension), benign Current Visit: Yes Status: Acute Code(s): I10 - ESSENTIAL (PRIMARY) HYPERTENSION SNOMED Code(s): 64306294 Comment: - Borderline hypotensive and symptomatic - Hold metoprolol - Decrease sotalol dose (3) History of ventricular tachycardia Current Visit: Yes Status: Acute Code(s): Z86.79 - PERSONAL HISTORY OF OTHER DISEASES OF THE CIRCULATORY SYSTEM SNOMED Code(s): 474313321006698 Comment: - Due to HOCM - S/p AICD - Optimize electrolytes, 2 runs of VT in last 24 hrs. (4) Hypertrophic cardiomyopathy Current Visit: Yes Status: Acute Code(s): I42.2 - OTHER HYPERTROPHIC CARDIOMYOPATHY SNOMED Code(s): 234033490 Comment: - Known history, S/P ICD (5) DVT prophylaxis Current Visit: Yes Status: Acute Code(s): Z29.9 - ENCOUNTER FOR PROPHYLACTIC MEASURES, UNSPECIFIED SNOMED Code(s): 021766653 Comment: - Eliquis (6) Full code status Current Visit: Yes Status: Acute Code(s): Z78.9 - OTHER SPECIFIED HEALTH STATUS SNOMED Code(s): 818442834 Comment: Status and Disposition: Inpatient for sotalol load. Anticipate d/c home when medically stable and cleared by Cardiology, likely tomorrow if QTc WNL.
[2019-09-13 08:00] LABS: BUN/Creatinine Ratio 18.3 (8-20); Calcium 8.6 mg/dL (8.6-10.3); EGFR African American 120.8 (>60); EGFR Non-African American 99.9 (>60)
[2019-09-13] MEDS: Apixaban* 5 MG TAB PO SCH (09:05)
[2019-09-13] MEDS: Sotalol TAB* 80 MG PO SCH (09:05)
[2019-09-13] MEDS: Magnesium Oxide TAB* 400 MG PO SCH (09:06)
[2019-09-13] MEDS: Multivitamins/Minerals TAB PO SCH (09:07)
[2019-09-13 10:56] VITALS: BP 108/68
--- NOTE | 2019-09-14 00:20 | DS ---
CC: Dr. Maldonado; Dr. Doyle * DISCHARGE SUMMARY: DATE OF ADMISSION: 09/10/19 DATE OF DISCHARGE: 09/13/19 PRIMARY CARE PROVIDER: Dr. Maldonado. OUTPATIENT ENGINE REPAIRER SERVICE: Dr. Doyle. ATTENDING PHYSICIAN: Dr. Duarte * (dictated by Elly Mcmahan NP) PRIMARY DIAGNOSES: 1. Atrial fibrillation with rapid ventricular response. 2. Hypertension. 3. History of ventricular tachycardia. 4. Hypertrophic cardiomyopathy. CONSULTATIONS WHILE IN THE HOSPITAL: Cardiology; Dr. Isaacs, Dr. Bhatt, Dr. Carpio, Maureen Johnston NP PROCEDURES WHILE IN THE HOSPITAL: Transesophageal cardioversion. STUDIES WHILE IN THE HOSPITAL: Transthoracic echo, impression: Left ventricle : There is moderate hypertrophy of the septum measuring 1.7 cm. No evidence of left ventricular outflow tract obstruction. Systolic function is normal. The estimated ejection fraction is 55% to 60%. Wall motion is normal. There are no regional wall abnormalities. Right ventricle: The pacer wire noted in the right ventricle. Systolic function is normal. Mitral valve: There is mild regurgitation. Aortic valve: Thickening consistent with sclerosis. There is no evidence of stenosis. Tricuspid valve: There is trace amount of regurgitation. Pulmonary artery: Systolic pressure is within normal limits. Compared to the study of 07/24/19, there is a little change. DISCHARGE HOME MEDICATIONS: Continued home medications: 1. Multivitamin 1 cap p.o. q.a.m. 2. Magnesium 400 mg p.o. b.i.d. 3. Aspirin 81 mg p.o. daily. Discontinued home medications: 1. Metoprolol. New home medications: 1. Sotalol 40 mg p.o. b.i.d. 2. Eliquis 5 mg p.o. b.i.d. HISTORY OF PRESENT ILLNESS/HOSPITAL COURSE: Mr. Welch is a 49-year-old male with a past medical history significant for hypertrophic cardiomyopathy, hypertension, remote VT, CAD, implanted defibrillator/pacer, who presented to the emergency department with dyspnea and rapid heart rate. Please see history and physical dictated by Dr. Bruno for complete summary of events leading up to hospitalization, but in short, the patient presented with shortness of breath on exertion and rapid heart rate and was found to be in AFib with RVR. Given the patient's report of when symptoms started, the patient did not require pre- anticoagulation before transesophageal echocardiogram. The patient underwent a transesophageal echocardiogram on 09/11/19 with cardioversion. It should be noted that prior to transesophageal echocardiogram , the patient was started on loading dose of sotalol, but had symptomatic hypotension; therefore, dose was decreased. The patient tolerated transesophageal echocardiogram well and has been noted to be in sinus rhythm to sinus denise. He did have a short 6-beat run of VT today, but was asymptomatic. Given the patient has a defibrillator pacer, we felt the patient was still safe for discharge despite this ectopy. The patient was restarted on a lower dose of sotalol after transesophageal echocardiogram and has been tolerating well. The patient was started on Eliquis on admission, which he will be discharged with. The patient is stable for discharge home. REVIEW OF SYSTEMS: A 14-point review of systems was completed. All were negative. PHYSICAL EXAM: General: Mr. Welch is a 49-year-old male, who is lying in bed. He appears to be in no acute distress. He appears stated age. Vital Signs : Temp 98.5, HR 62, RR 14, O2 saturation 98% on room air, BP 108/68. HEENT: EOMs intact. PERRLA. Oral mucosa is moist without lesions. Posterior pharynx is clear. Neck: Full range of motion. No lymphadenopathy. Respiratory: Symmetric chest expansion. No accessory muscle use. Lungs are clear to auscultation. CV: Regular rate and rhythm. S1, S2 present. No murmurs, rubs, or gallops. Extremities: Skin is warm and smooth bilaterally. No edema. No clubbing or cyanosis. Musculoskeletal: Full range of motion. No pain or deformities. Abdomen: Soft, nontender. Bowel sounds normoactive. Neuro: Awake, alert, and oriented x4. Cranial nerves are grossly intact. Motor strength is 5/5 in upper and lower extremities. Skin: Grossly intact without lesions. LABORATORY DATA: WBC 8.0, hemoglobin 14.3, hematocrit 42, platelets 225. Sodium 139, potassium 4.0, chloride 105, carbon dioxide 29, BUN 15, creatinine 0.82, magnesium 2. DISCHARGE PLAN/FOLLOWUP: 1. Atrial fibrillation with RVR: The patient should continue sotalol 40 mg p.o. b.i.d. The patient should follow up with his outpatient levi maker in 1 to 2 weeks. The patient is to continue Eliquis for at least 4 to 6 weeks and discontinuation of this can be decided with his levi maker. It should be mentioned that the patient did have a slightly elevated QTc, but this normalized on repeat EKG. I would recommend a followup EKG with Cardiology. 2. Hypertension: The patient is borderline hypotensive, but is asymptomatic. We have discontinued the patient's metoprolol. The patient should continue his reduced dose of sotalol. 3. History of ventricular tachycardia: The patient has an ICD/pacer. The patient's electrolytes have been optimized. The patient should continue his magnesium. The patient should have a repeat BMP with Cardiology or primary care provider. 4. Hypertrophic cardiomyopathy: The patient had echocardiogram as mentioned above. The patient has an ICD. The patient should follow up with Cardiology in 1 to 2 weeks. 5. Followup: The patient should follow up with primary care 1 to 3 days. The patient should follow up with Cardiology in 1 to 2 weeks. 6. Education: The patient was educated on signs and symptoms of new or worsening conditions, when to return to the emergency department. The patient stated understanding. This is a summarized report of a complex medical history and hospital stay. For further details, please see entire medical record. TIME SPENT: Approximately 45 minutes on this discharge, greater than half of that time was spent [id number] with the patient discussing discharge plan and instructions. This case has been reviewed with my attending, Dr. Duarte, who is in agreement with plan of care. Reviewed by ELLY MCMAHAN NP 09/21/19 @ 0845 [id number]/[facility] #: [id number]
== END 2019-09-13 14:40 | disposition home or self-care (01) | DRG 201 ==
LOC: ED 19:42 → MEDTELE 09-10 02:46 → OBSVTOIN 09-10 11:18
PROVIDERS: ADMIT Nurse Practitioner Family; ATTEND Internal Medicine
PROC: B24BZZ4 Ultrasonography of Heart with Aorta, Transesophageal (ICD-10-PCS; 2019-09-11)
PROC: 5A2204Z Restoration of Cardiac Rhythm, Single (ICD-10-PCS; principal; 2019-09-11 11:00)
DX: I48.0 Paroxysmal atrial fibrillation (principal); I42.1 Obstructive hypertrophic cardiomyopathy; I34.0 Nonrheumatic mitral (valve) insufficiency; E83.42 Hypomagnesemia; I10 Essential (primary) hypertension; I95.9 Hypotension, unspecified; I25.119 Atherosclerotic heart disease of native coronary artery with unspecified angina pectoris; I47.2 Ventricular tachycardia; Z95.810 Presence of automatic (implantable) cardiac defibrillator; Z88.1 Allergy status to other antibiotic agents; Z91.018 Allergy to other foods; Z28.21 Immunization not carried out because of patient refusal; Z88.0 Allergy status to penicillin; Z79.899 Other long term (current) drug therapy; Z79.82 Long term (current) use of aspirin
CPT/HCPCS: 36415; 80048; 80053; 80061; 83735; 84484; 85025; 93005; 93306; 93312; 93325; 96365; 99156; 99157; 99284; A9270-GY; J2250; J2310; J3010; J3475